=== PATIENT | female | born 1980 | race Caucasian/White ===

== ENCOUNTER 2016-10-25 15:05 | Inpatient (IN) | payer OTHER ==
--- NOTE | ~2016-10-25 | HP ---
Unit #: [id number] #: [id number] Patient: HEATHER CAMPA [id number] [place] [address] [id number] MR#: [id number] NAME: HEATHER CAMPA ROOM: P186 Age: 36 Sex: F Admission Date: 10/25/2016 : 1980 Attending Physician: Donny Le M.D. Admitting Physician: Donny Le M.D. Primary Care Physician: Hasmukh Doctor Not In System HISTORY AND PHYSICAL HISTORY OF PRESENT ILLNESS Heather is a 36-year-old female admitted to [facility] because of her drug use. PAST MEDICAL HISTORY 1. History of illicit substance abuse to include heroin. 2. Fibromyalgia. 3. Obesity. PAST SURGICAL HISTORY x1. ALLERGIES Sulfa. SOCIAL HISTORY She does not smoke. Drinks alcohol on occasion. Admits to a history of poly-illicit substance abuse. FAMILY HISTORY Medically noncontributory. REVIEW OF SYSTEMS CONSTITUTIONAL: No fever or chills. HEENT: Denies any sore throat, ear pain or runny nose. CARDIOVASCULAR: Denies chest pain, irregular heart rhythm or palpitations. CHEST: Denies shortness of breath or cough. No hemoptysis. GASTROINTESTINAL: Denies nausea, vomiting, diarrhea or chronic constipation. ENDOCRINE: Denies history of increased thirst or urination. No recent significant weight loss or gain. GENITOURINARY: Denies dysuria, frequency, or hematuria. SKIN: Denies any rashes. HEMATOLOGIC: Denies history of increased bleeding or bruising. MUSCULOSKELETAL: Denies any hot, swollen joints. No generalized muscle pain. NEUROLOGIC: Denies problems with vision or speech. No frequent, severe headaches. No numbness, tingling or weakness in any extremities. Denies loss of bladder or bowel control. CURRENT MEDICATIONS 1. Milk of Magnesia p.r.n. 2. Maalox p.r.n. 3. Tylenol p.r.n. Unit #: [id number] #: [id number] Patient: HEATHER CAMPA 4. Neurontin 300 mg t.i.d. 5. Methocarbamol 500 mg daily. 6. Effexor XR 150 mg daily. PHYSICAL EXAMINATION GENERAL: Alert, obese, no apparent distress. VITAL SIGNS: Blood pressure 126/70, heart rate 80, respirations 16, temperature 98.6. WEIGHT: 220. HEIGHT: 5 feet 5 inches. SKIN: Warm and dry without rash or lesion. HEENT: Normocephalic. TMs not viewed. Oral and nasal passages clear. Conjunctivae clear. PERRLA. EOMs intact. NECK: Supple without lymphadenopathy or thyromegaly. HEART: Regular rate and rhythm without murmur. LUNGS: Clear. ABDOMEN: Soft, nontender. : Not done. EXTREMITIES: No evidence of cyanosis, clubbing or edema. Moves all without focal deficit. NEUROLOGICAL: Grossly within normal limits. Cranial Nerves: II: Visual gillespie are intact. III, IV AND : Extraocular movements are intact. Pupils are equal, round and reactive to light. V: Facial sensation is grossly normal. VII: Facial movements and expression are normal. VIII: Auditory acuity grossly intact. IX, X: Uvula is midline. Phonation is normal. XI: Patient shrugs shoulders and turns head normally. XII: Tongue protrudes in the midline. Sensory and Motor Function: Sensory and motor sensation is grossly normal. Motor: moves all extremities well. Coordination: Gait is normal. Deep Tendon Reflexes: Intact. IMPRESSION Psychiatric admission. RECOMMENDATIONS PSYCHIATRIC: Per psychiatrist. MEDICAL: See no contraindications to participate in facility's activities. MEDICAL PROGNOSIS Good. MEDICAL CONDITION Stable. Dictated by... Katt Jo P.A.-C. for Chanel Miller/blaine TD: 10/25/2016 20:44 JOB #: [id number] Unit #: [id number] #: [id number] Patient: HEATHER CAMPA HISTORY AND PHYSICAL Page 1 of 1 X Katt Jo HISTORY AND PHYSICAL
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
== END 2016-10-27 12:31 | disposition home or self-care (01) | DRG 882 ==
LOC: P1E 15:05
DX: F43.12 Post-traumatic stress disorder, chronic (principal); F33.2 Major depressive disorder, recurrent severe without psychotic features; R45.851 Suicidal ideations; M79.7 Fibromyalgia; E66.9 Obesity, unspecified; Z88.2 Allergy status to sulfonamides